=== PATIENT | female | born 1975 | race Two or more races ===

== ENCOUNTER 2017-03-31 13:40 | Inpatient (IN) | payer SELFPAY ==
[~2017-03-31] VITALS: Ht 157.5 cm; Wt 70.7 kg
[2017-03-31 14:19] LABS: Urine Bilirubin Negative (Negative); Urine Color Yellow (Yellow); Urine Glucose Normal (Normal); Urine Mucus FEW (None Seen); Urine Nitrite Negative (Negative); Urine RBC 4 /hpf (0 - 4); Urine Squamous Epithelial Cell FEW /hpf (<5); Urine Urobilinogen Normal (Negative); Urine pH 5.5 (5.0-8.0)
[2017-03-31 14:26] LABS: Basophils # (auto) 0 uL; Basophils % (auto) 0.4 % (0.0-2.0); Eosinophils # (auto) 0.1 uL; Eosinophils % (auto) 0.9 % (0.0-7.0); Hemoglobin 14.9 g/dL (12.2-16.2); Lymphocytes # (auto) 1.7 uL; Mean Corpuscular Hemoglobin 29.8 pg (28.0-32.0); Mean Corpuscular Hgb Conc. 33.8 g/dL (32.0-36.0); Mean Platelet Volume 7.3 fL (7.4-10.4); Monocytes # (auto) 0.8 uL; Monocytes % (auto) 8.3 % (0.0-12.0); Neutrophils # (auto) 6.8 uL; Neutrophils % (auto) 72.4 % (37.0-80.0); Platelet Count (auto) 367 10^3/uL (140-450); Red Cell Distribution Width 14.9 % (11.6-16.0); White Blood Cell 9.3 10^3/uL (4.4-10.8)
[2017-03-31 14:27] LABS: Urine Blood 1+ /uL (Negative); Urine Ketone 1+ (Negative)
[2017-03-31 14:50] LABS: Albumin 3.6 g/dL (3.4-5.0); BUN/Creatinine Ratio 18.5; Bilirubin, Total 0.2 mg/dL (0.2-1.0); Calcium 7.9 mg/dL (8.5-10.1); Potassium 3.4 mmol/L (3.5-5.1); Total Protein 8.3 g/dL (6.4-8.2)
[2017-03-31] MEDS ORDERED: SODIUM CHLORIDE 0.9% 1,000 ML IVB ONE (14:59)
[2017-03-31] MEDS ORDERED: KETOROLAC TROMETH 30 MG/ML 1ML VIAL IV ONE (15:00)
[2017-03-31] MEDS ORDERED: ONDANSETRON HCL 4 MG/2 ML VIAL IV ONE (15:00)
[2017-03-31] MEDS ORDERED: MORPHINE SULF INJ 2 MG/ML SYRINGE 1ML IV ONE (15:15)
[2017-03-31] MEDS ORDERED: HYDROcodone-ACET 5/325MG TAB PO PRN (18:15)
[2017-03-31] MEDS ORDERED: MORPHINE SULF INJ 2 MG/ML SYRINGE 1ML IV PRN (18:15)
[2017-03-31] MEDS ORDERED: ALBUTEROL SULF 2.5 MG/0.5ML(0.5%) NEB SOLN NEB PRN (18:15)
[2017-03-31] MEDS ORDERED: PROMETHAZINE HCL 25 MG/ML 1ML IV PRN (18:15)
[2017-03-31] MEDS ORDERED: NITROGLYCERIN 0.4 MG SL TAB SL PRN (18:15)
[2017-03-31] MEDS ORDERED: TEMAZEPAM 15 MG CAP PO PRN (18:15)
[2017-03-31] MEDS ORDERED: LORazepam 0.5 MG TAB PO PRN (18:15)
[2017-03-31] MEDS ORDERED: ACETAMINOPHEN 500 MG TAB PO PRN (18:15)
[2017-03-31] MEDS: SODIUM CHLORIDE 0.9% 1,000 ML IV SCH (18:29)
[2017-03-31] MEDS ORDERED: cefTRIAXone 1GM/50ML D5W 50 ML IV ONE (18:30)
[2017-03-31] MEDS: MORPHINE SULF INJ 2 MG/ML SYRINGE 1ML IV PRN (18:38)
[2017-03-31] MEDS: FAMOTIDINE (10MG/ML) 2ML VL IV SCH (18:38)
[2017-03-31 21:00] VITALS: BP 112/69
[2017-03-31] MEDS: metroNIDAZOLE 500MG/100ML 100 ML IV SCH (23:59)
[2017-04-01] VITALS (7 sets, daily range): BP systolic 90–112; BP diastolic 53–69
[2017-04-01] MEDS: MORPHINE SULF INJ 2 MG/ML SYRINGE 1ML IV PRN (00:06)
[2017-04-01] MEDS: SODIUM CHLORIDE 0.9% 1,000 ML IV SCH ×2 (04:14→12:47)
[2017-04-01] MEDS: metroNIDAZOLE 500MG/100ML 100 ML IV SCH ×2 (05:41→12:08)
[2017-04-01] MEDS: FAMOTIDINE (10MG/ML) 2ML VL IV SCH (05:41)
[2017-04-01 06:30] LABS: Basophils # (auto) 0 uL; Basophils % (auto) 0.5 % (0.0-2.0); Eosinophils # (auto) 0.1 uL; Eosinophils % (auto) 1.6 % (0.0-7.0); Hematocrit 32.9 % (36.0-46.0); Hemoglobin 11.3 g/dL (12.2-16.2); Lymphocytes # (auto) 1.8 uL; Lymphocytes % (auto) 34.7 % (10.0-50.0); Mean Corpuscular Hemoglobin 30.3 pg (28.0-32.0); Mean Corpuscular Hgb Conc. 34.3 g/dL (32.0-36.0); Mean Corpuscular Volume 88.2 fL (80.0-100.0); Mean Platelet Volume 7.3 fL (7.4-10.4); Monocytes # (auto) 0.6 uL; Monocytes % (auto) 11.5 % (0.0-12.0); Neutrophils # (auto) 2.7 uL; Neutrophils % (auto) 51.7 % (37.0-80.0); Platelet Count (auto) 280 10^3/uL (140-450); Red Cell Distribution Width 14.6 % (11.6-16.0); White Blood Cell 5.2 10^3/uL (4.4-10.8)
[2017-04-01 07:48] LABS: Albumin 2.6 g/dL (3.4-5.0); Bilirubin, Total 0.2 mg/dL (0.2-1.0); Calcium 6.8 mg/dL (8.5-10.1); Potassium 3.2 mmol/L (3.5-5.1); Total Protein 5.9 g/dL (6.4-8.2)
[2017-04-01] MEDS ORDERED: cefTRIAXone 1GM/50ML D5W 50 ML IV SCH (09:00)
[2017-04-01] MEDS ORDERED: ENOXAPARIN SOD 40 MG/0.4 ML SYRINGE SC SCH (10:00)
== END 2017-04-01 16:05 | disposition home or self-care (01) | DRG 392 ==
LOC: ER 13:40 → TELE 13:41 → TELE-EAST 19:37
PROVIDERS: ADMIT Internal Medicine; ATTEND Internal Medicine
DX: K58.0 Irritable bowel syndrome with diarrhea (principal); J45.909 Unspecified asthma, uncomplicated; K82.8 Other specified diseases of gallbladder; E66.3 Overweight; E87.6 Hypokalemia; Z83.3 Family history of diabetes mellitus; Z68.28 Body mass index [BMI] 28.0-28.9, adult; Z71.89 Other specified counseling
CPT/HCPCS: 36415; 74176; 76705; 78226; 80053; 81001; 81025; 82150; 83690; 84443; 85025; 85652; 86141; 87086; 87493; 94761; 96361; 96374; 96375; 96376; J0696; J1885; J2405; J3490